=== PATIENT | female | born 1980 | race African-American/Black ===

== ENCOUNTER 2017-03-13 09:02 | Inpatient (IN) | payer OTHER ==
[~2017-03-13] VITALS: Ht 167.6 cm; Wt 100.5 kg
[2017-03-13] VITALS (8 sets, daily range): BP systolic 103–129; BP diastolic 53–65
[2017-03-13] MEDS ORDERED: ONE DAILY MULT1 EACH PO (11:11)
[2017-03-13 11:30] LABS: EOSINOPHIL (%) 1.2 % (0-5); EOSINOPHIL COUNT 0.1 K/uL (0-0.3); HEMATOCRIT 38.9 % (36.0-46.0); IMMATURE GRANULOCYTE (%) 0.7 % (0.0-0.7); IMMATURE GRANULOCYTE COUNT 0.1 K/uL; INSTRUMENT ABS NEUTROPHIL CT 6.1 K/uL; LYMPHOCYTE COUNT 1.4 K/uL (1.0-2.8); MCH 28.3 PG (29.0-34.0); MCHC 31.9 G/DL (30.0-36.0); MCV 88.8 FL (83-99); MEAN PLAT.VOLUME 10.9 uM^3 (9.5-12.4); MONOCYTE (%) 7.5 % (3-12); MONOCYTE COUNT 0.6 K/uL (0-0.8); NEUTROPHIL (%) 73.8 % (45-76); NEUTROPHIL COUNT 6.1 K/uL (1.8-6.4); PLATELET COUNT 208 K/uL (156-360); RBC DIS.WIDTH-CV 14.2 % (11.8-14.6); RBC DIS.WIDTH-SD 46.1 % (39-53); RED BLOOD COUNT 4.38 M/uL (3.80-5.20); WHITE BLOOD COUNT 8.3 K/uL (4.1-10.2)
[2017-03-13 14:26] LABS: Estimated Average Glucose 126 mg/dL (70-123)
[2017-03-14] VITALS (11 sets, daily range): BP systolic 114–155; BP diastolic 59–78
[2017-03-15 06:57] LABS: EOSINOPHIL (%) 1.4 % (0-5); EOSINOPHIL COUNT 0.2 K/uL (0-0.3); HEMATOCRIT 30.2 % (36.0-46.0); IMMATURE GRANULOCYTE (%) 0.8 % (0.0-0.7); IMMATURE GRANULOCYTE COUNT 0.1 K/uL; INSTRUMENT ABS NEUTROPHIL CT 7.5 K/uL; LYMPHOCYTE COUNT 2.6 K/uL (1.0-2.8); MCH 29.6 PG (29.0-34.0); MCHC 32.8 G/DL (30.0-36.0); MCV 90.1 FL (83-99); MEAN PLAT.VOLUME 11.1 uM^3 (9.5-12.4); MONOCYTE (%) 8.9 % (3-12); NEUTROPHIL (%) 66.1 % (45-76); NEUTROPHIL COUNT 7.5 K/uL (1.8-6.4); PLATELET COUNT 180 K/uL (156-360); RBC DIS.WIDTH-CV 14.6 % (11.8-14.6); RBC DIS.WIDTH-SD 47.6 % (39-53); RED BLOOD COUNT 3.35 M/uL (3.80-5.20); WHITE BLOOD COUNT 11.3 K/uL (4.1-10.2)
[2017-03-15 07:50] VITALS: BP 118/61
[2017-03-15 15:19] VITALS: BP 132/69
[2017-03-16] MEDS ORDERED: CHROMAGEN,1 CAPSULE PO (11:49)
== END 2017-03-16 20:02 | disposition home or self-care (01) | DRG 775 ==
LOC: LDRP-OP 09:02 → 2WEST 09:04 → LDRP-OP 05-07 14:32
PROVIDERS: Advanced Practice Midwife
PROC: 0U7C7ZZ Dilation of Cervix, Via Natural or Artificial Opening (ICD-10-PCS; 2017-03-13)
PROC: 0HQ9XZZ Repair Perineum Skin, External Approach (ICD-10-PCS; principal; 2017-03-14)
PROC: 10E0XZZ Delivery of Products of Conception, External Approach (ICD-10-PCS; principal; 2017-03-14)
DX: O70.0 First degree perineal laceration during delivery (principal); O60.14X0 Preterm labor third trimester with preterm delivery third trimester, not applicable or unspecified; O42.113 Preterm premature rupture of membranes, onset of labor more than 24 hours following rupture, third trimester; O34.211 Maternal care for low transverse scar from previous cesarean delivery; O99.214 Obesity complicating childbirth; E66.9 Obesity, unspecified; Z53.29 Procedure and treatment not carried out because of patient's decision for other reasons; Z68.32 Body mass index [BMI] 32.0-32.9, adult; Z3A.36 36 weeks gestation of pregnancy; Z37.0 Single live birth
CPT/HCPCS: 83036; 85025; 86850; 86900; 86901; 87081; G0378